=== PATIENT | female | born 1980 | race Caucasian/White ===

== ENCOUNTER 2017-03-27 02:30 | Emergency (ER) | payer MEDICAID, OTHER ==
[~2017-03-27] VITALS: Ht 160 cm; Wt 147.4 kg
[2017-03-27] MEDS ORDERED: IV NORMAL SALINE 1,000ML 1,000 ML IV SCH (02:44)
[2017-03-27] MEDS ORDERED: HYDROmorphone PF 1 MG/ML DISP.SYRIN IV/SQ PRN (02:45)
[2017-03-27] MEDS ORDERED: ACETAMINOPHEN 325 MG TABLET PO ONE (02:45)
[2017-03-27] MEDS ORDERED: ONDANSETRON PF 4 MG/2 ML VIAL. IV ONE (02:45)
[2017-03-27] MEDS ORDERED: 0.9 % SODIUM CHLORIDE 10 ML DISP.SYRIN. IV PRN (02:45)
[2017-03-27] MEDS ORDERED: KETOROLAC 30 MG/ML VIAL. IV ONE (02:45)
--- NOTE | 2017-03-27 02:49 | PHYS DOC ---
Past History Past Medical History: Hypertension, Hypothyroid Past Surgical History: No Surgical History Smoking: Non-smoker Alcohol Use: Occasionally Drug Use: None Adult General Chief Complaint Chief Complaint: cough, nausea, vomiting, diarrhea [facility] Patient is a pleasant 36-year-old female with a history of essential hypertension hypothyroidism presents with nausea, vomiting, diarrhea for last 18 hours along with myalgias a nonproductive cough and low-grade fevers. Patient says she began not feeling well yesterday when she developed a nonproductive cough with progressive symptoms of myalgias in her upper and lower extremities, with diffuse abdominal discomfort nausea vomiting nonbilious nonbloody and older episodes of diarrhea nonbloody nonmucoid. 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 She denies any consumption of raw food, handling of poultry or reptiles. Abdominal pain is not changed with TheraFlu over-the- counter medication she took with her symptoms. She denies any chest pain, shortness of breath, sore throat or change in voice. She denies any runny nose or hearing loss or ear pain along with drainage. Review of Systems Review of Systems Constitutional: Positive for fevers and chills Eyes: Denies change in visual acuity, redness, or eye pain [] HENT: Positive for nasal congestion without sore throat Respiratory: Positive for nonproductive cough without shortness of breath Cardiovascular: No additional information not addressed in HPI [] GI: Positive for diffuse abdominal pain, nausea vomiting diarrhea without constipation or bloody stools : Denies dysuria or hematuria [] Musculoskeletal: Denies back pain or joint pain [] Integument: Denies rash or skin lesions [] Neurologic: Denies headache, focal weakness or sensory changes patient feels generally weak [] Endocrine: Denies polyuria or polydipsia [] All other systems were reviewed and found to be within normal limits, except as documented in this note. Physical Exam Physical Exam Of The vital signs recorded on the chart patient noted to be tachycardic likely secondary to stress and volume depletion. Constitutional: Well developed, well nourished, no acute distress, non-toxic appearance. [] HENT: Normocephalic, atraumatic, bilateral external ears normal, oropharynx slightly dry with mild erythema bu, no oral exudates, nose normal. [] Eyes: PERRLA, EOMI, conjunctiva normal, no discharge. [] Neck: Normal range of motion, no tenderness, supple, no stridor. [] Cardiovascular: Heart rate is regular and tachycardic no murmurs gallops or rubs noted Lungs & Thorax: Bilateral breath sounds clear to auscultation [] Abdomen: Patient has hyperactive bowel sounds but no particular tenderness in any particular quadrant. No masses patient is an obese abdomen but no evidence of hernia, no Gomes's or McBurney's point tenderness to palpation. Skin: Warm, dry, no erythema, no rash. [] Extremities: No tenderness, no cyanosis, no clubbing, ROM intact, no edema. [] Neurologic: Alert and oriented X 3, normal motor function, normal sensory function, no focal deficits noted. [] Psychologic: This patient seems somewhat anxious but judgment is normal] Current Patient Data Lab Results Laboratory Tests Test 03/27/17 03:14 White Blood Count 7.9 x10^3/uL (4.0-11.0) Red Blood Count 4.60 x10^6/uL (3.50-5.40) Hemoglobin 11.3 g/dL (12.0-15.5) L Hematocrit 34.4 % (36.0-47.0) L Mean Corpuscular Volume 75 fL (79-100) L Mean Corpuscular Hemoglobin 25 pg (25-35) Mean Corpuscular Hemoglobin Concent 33 g/dL (31-37) Red Cell Distribution Width 16.3 % (11.5-14.5) H Platelet Count 377 x10^3/uL (140-400) Neutrophils (%) (Auto) 79 % (31-73) H Lymphocytes (%) (Auto) 10 % (24-48) L Monocytes (%) (Auto) 10 % (0-9) H Eosinophils (%) (Auto) 1 % (0-3) Basophils (%) (Auto) 1 % (0-3) Neutrophils # (Auto) 6.2 x10^3uL (1.8-7.7) Lymphocytes # (Auto) 0.8 x10^3/uL (1.0-4.8) L Monocytes # (Auto) 0.8 x10^3/uL (0.0-1.1) Eosinophils # (Auto) 0.0 x10^3/uL (0.0-0.7) Basophils # (Auto) 0.0 x10^3/uL (0.0-0.2) Sodium Level 140 mmol/L (136-145) Potassium Level 3.5 mmol/L (3.5-5.1) Chloride Level 105 mmol/L (98-107) Carbon Dioxide Level 23 mmol/L (21-32) Anion Gap 12 (6-14) Blood Urea Nitrogen 13 mg/dL (7-20) Creatinine 0.8 mg/dL (0.6-1.0) Estimated GFR (Cockcroft-Gault) 82.1 Glucose Level 121 mg/dL (70-99) H Calcium Level 8.6 mg/dL (8.5-10.1) Total Bilirubin 0.1 mg/dL (0.2-1.0) L Direct Bilirubin 0.1 mg/dL (0.0-0.2) Aspartate Amino Transferase (AST) 16 U/L (15-37) Alanine Aminotransferase (ALT) 27 U/L (14-59) Alkaline Phosphatase 126 U/L (46-116) H Troponin I Quantitative < 0.017 ng/mL (0-0.055) Total Protein 7.4 g/dL (6.4-8.2) Albumin 2.8 g/dL (3.4-5.0) L Lipase 66 U/L (73-393) L EKG EKG [] Radiology/Procedures Radiology/Procedures [] Course & Med Decision Making Course & Med Decision Making Pertinent Labs and Imaging studies reviewed. (See chart for details) she presents with nausea vomiting diarrhea and flulike symptoms for last 18 hours. Patient immediately came in she felt that she could not keep food and fluids down upon her arrival her abdomen was soft but because of her nausea vomiting diarrhea and an inability to localize pain in the right lower right upper abdomen patient a CAT scan done with IV contrast. []To presented with [address] [address] IMAGING REPORT Signed PATIENT: CHINYEREJune ACCOUNT: [id number] : 1980 LOCATION: ER AGE: 36 SEX: F EXAM STATUS: REG ER ORD. PHYSICIAN: MALCOLM VELARDE MD REASON: ABDOMINAL PAIN, NAUSEA VOMITING DIARRHEA PROCEDURE: CT ABD PELV W/ IV CONTRST ONLY PQRS Compliance Statement: One or more of the following individualized dose reduction techniques were utilized for this examination: 1. Automated exposure control 2. Adjustment of the mA and/or kV according to patient size 3. Use of iterative reconstruction technique CT ABD PELV W/ IV CONTRST ONLY Clinical Indication: DIFFUSE ABDOMINAL PAIN, FEVER, NAUSEA AND VOMITING Comparison: None. Technique: Helical CT imaging of the abdomen and pelvis is performed after 75 cc Omnipaque 300 IV contrast. Oral contrast not given. Findings: Respiratory motion artifact in the lung bases. Minimal atelectasis or scarring posterior left lower lobe. Cardiac size normal. Liver, gallbladder, spleen, pancreas, adrenal glands, abdominal aorta, and kidneys are normal. Stomach unremarkable. No dilated small bowel. No colon wall thickening. The appendix is normal. No abdominal adenopathy or free fluid. Ovaries symmetric. Uterus unremarkable. Urinary bladder nearly completely decompressed, otherwise normal. No pelvic free fluid. Bones unremarkable. IMPRESSION: No acute abdominal or pelvic abnormality. Electronically signed by: Mathew Valle MD (03/27/2017 4:11 AM) [facility] On secondary examination at 4:20 AM patient is felt markedly improved and her cough is resolved. Her tachycardia is improved from the mid 120s to 100. Patient abdomen soft waiting for flu swab to return. Time is now 5:15 AM patient also has negative she is feeling markedly improved and her tachycardia is now resolved. Impression: Abdominal pain, nausea vomiting diarrhea, tachycardia resolving discharge: I've spoken with the patient and/or caregivers. I've explained the patient's condition, diagnosis and treatment plan based on information available to me at this time. I've answered the patient's and/or caregivers questions and addressed any concerns. The patient and/or caregivers have a good understanding the patient's diagnosis, condition and treatment plan as can be expected at this point. Vital signs have been stabilized. The patient's condition is stable for discharge from the emergency department. The patient will pursue further outpatient evaluation with her primary care provider or other designated consulting physician as outlined in the discharge instructions. Patient and/or caregivers are agreeable to this plan of care and follow-up instructions have been explained in detail. The patient and/or caregivers have received these instructions in written format and expressed understanding of these discharge instructions. The patient and her caregivers are aware that if any significant change in condition or worsening of symptoms should prompt him to immediately return to this of the closest emergency department. If an emergent department is not readily available I would encourage him to call 911. Dragon Disclaimer Dragon Disclaimer This electronic medical record was generated, in whole or in part, using a voice recognition dictation system. Departure Departure: Impression: Primary Impression: Nausea and vomiting Additional Impression: Diarrhea Disposition: HOME, SELF-CARE Condition: IMPROVED Referrals: NAME,DAWNA RAMIREZ (PCP) Patient Instructions: Abdominal Pain (Nonspecific), Cough, Adult, Diarrhea, Nausea and Vomiting Additional Instructions: discharge: I've spoken with the patient and/or caregivers. I've explained the patient's condition, diagnosis and treatment plan based on information available to me at this time. I've answered the patient's and/or caregivers questions and addressed any concerns. The patient and/or caregivers have a good understanding the patient's diagnosis, condition and treatment plan as can be expected at this point. Vital signs have been stabilized. The patient's condition is stable for discharge from the emergency department. The patient will pursue further outpatient evaluation with her primary care provider or other designated consulting physician as outlined in the discharge instructions. Patient and/or caregivers are agreeable to this plan of care and follow-up instructions have been explained in detail. The patient and/or caregivers have received these instructions in written format and expressed understanding of these discharge instructions. The patient and her caregivers are aware that if any significant change in condition or worsening of symptoms should prompt him to immediately return to this of the closest emergency department. If an emergent department is not readily available I would encourage him to call 911. Scripts Ondansetron (ZOFRAN ODT) 4 Mg Tab.rapdis 1 TAB SL Q8HRS, #15 TAB Prov: MALCOLM VELARDE MD 03/27/17 Naproxen Sodium (NAPROXEN SODIUM) 275 Mg Tablet 275 MG PO BID for 7 Days, #14 TAB Prov: MALCOLM VELARDE MD 03/27/17 Diphenoxylate Hcl/Atropine (LOMOTIL TABLET) 1 Each Tablet 1 TAB PO QID, #20 TAB Prov: MALCOLM VELARDE MD 03/27/17 Dicyclomine Hcl (BENTYL) 10 Mg Capsule 1 CAP PO TID, #15 CAP.EC Prov: MALCOLM VELARDE MD 03/27/17 Problem Qualifiers MALCOLM VELARDE MD Mar 27, 2017 02:49
[2017-03-27] MEDS ORDERED: HYDROmorphone PF 2 MG/ML VIAL ONE (03:29)
[2017-03-27] MEDS ORDERED: IOHEXOL 300 MG/ML 75 ML VIAL. IV ONE (03:30)
[2017-03-27] MEDS ORDERED: CONTRAST GIVEN MC PRN (03:30)
[2017-03-27 03:51] LABS: BASO % 1 % (0-3); EOS % 1 % (0-3); HEMATOCRIT 34.4 % (36.0-47.0); HEMOGLOBIN 11.3 g/dL (12.0-15.5); LYMPH # 0.8 x10^3/uL (1.0-4.8); LYMPH % 10 % (24-48); MEAN CORPUSCULAR HEMOGLOBIN 25 pg (25-35); MEAN CORPUSCULAR HGB CONC 33 g/dL (31-37); MEAN CORPUSCULAR VOLUME 75 fL (79-100); MONO # 0.8 x10^3/uL (0.0-1.1); MONO % 10 % (0-9); NEUT # 6.2 x10^3uL (1.8-7.7); NEUT % 79 % (31-73); PLATELET COUNT 377 x10^3/uL (140-400); RED CELL DISTRIBUTION WIDTH 16.3 % (11.5-14.5); WHITE BLOOD COUNT 7.9 x10^3/uL (4.0-11.0)
[2017-03-27 04:00] LABS: ALBUMIN 2.8 g/dL (3.4-5.0); CALCIUM 8.6 mg/dL (8.5-10.1); CREATININE 0.8 mg/dL (0.6-1.0); DIRECT BILIRUBIN 0.1 mg/dL (0.0-0.2); GFR 82.1; POTASSIUM 3.5 mmol/L (3.5-5.1); TOTAL BILIRUBIN 0.1 mg/dL (0.2-1.0); TOTAL PROTEIN 7.4 g/dL (6.4-8.2)
--- NOTE | 2017-03-27 04:15 | RAD ---
PQRS Compliance Statement: One or more of the following individualized dose reduction techniques were utilized for this examination: 1. Automated exposure control 2. Adjustment of the mA and/or kV according to patient size 3. Use of iterative reconstruction technique CT ABD PELV W/ IV CONTRST ONLY Clinical Indication: DIFFUSE ABDOMINAL PAIN, FEVER, NAUSEA AND VOMITING Comparison: None. Technique: Helical CT imaging of the abdomen and pelvis is performed after 75 cc Omnipaque 300 IV contrast. Oral contrast not given. Findings: Respiratory motion artifact in the lung bases. Minimal atelectasis or scarring posterior left lower lobe. Cardiac size normal. Liver, gallbladder, spleen, pancreas, adrenal glands, abdominal aorta, and kidneys are normal. Stomach unremarkable. No dilated small bowel. No colon wall thickening. The appendix is normal. No abdominal adenopathy or free fluid. Ovaries symmetric. Uterus unremarkable. Urinary bladder nearly completely decompressed, otherwise normal. No pelvic free fluid. Bones unremarkable. IMPRESSION: No acute abdominal or pelvic abnormality. Electronically signed by: Mathew Valle MD (03/27/2017 4:11 AM) [facility]
[2017-03-27 04:24] LABS: BACTERIA,URINE FEW /HPF (0-FEW); BILIRUBIN,URINE NEG (NEG); CLARITY,URINE CLEAR; COLOR,URINE YELLOW; GLUCOSE,URINE NEG (NEG); NITRITE,URINE NEG (NEG); SQUAMOUS EPITHELIAL CELL,UR MOD /LPF; UROBILINOGEN,URINE 0.2 mg/dL (0.2 mg/dL)
[2017-03-27 05:01] LABS: INFLUENZA A PATIENT NEGATIVE (NEGATIVE); INFLUENZA B PATIENT NEGATIVE (NEGATIVE)
[2017-03-27] MEDS ORDERED: HYDROmorphone PF 2 MG/ML VIAL IV/SQ PRN (05:07)
[2017-03-27] MEDS ORDERED: NAPR275T59 PO (05:17)
[2017-03-27] MEDS ORDERED: DIPH1TAB PO (05:17)
[2017-03-27] MEDS ORDERED: ONDA4TAB10 SL (05:17)
[2017-03-27] MEDS ORDERED: DICY10CA53 PO (05:17)
[2017-03-27 05:36] VITALS: BP 131/83
== END 2017-03-27 06:00 | disposition home or self-care (01) ==
LOC: ER 02:30
DX: R11.2 Nausea with vomiting, unspecified (principal); R19.7 Diarrhea, unspecified; R50.9 Fever, unspecified; E03.9 Hypothyroidism, unspecified; I10 Essential (primary) hypertension
CPT/HCPCS: 36415; 74177; 80048; 80076; 81001; 83690; 84484; 85025; 87086; 87804; 96361; 96374; 96375; 99285; J1170; J1885; J2405; Q9967; J7030

== ENCOUNTER 2017-12-10 17:22 | Emergency (ER) | payer OTHER ==
[~2017-12-10] VITALS: Ht 160 cm; Wt 147.4 kg
[2017-12-10 17:22] VITALS: BP 144/81
[~2017-12-10 17:22] MED LIST: DICY10CA53 PO; DIPH1TAB PO; NAPR275T59 PO; ONDA4TAB10 SL
--- NOTE | 2017-12-10 17:53 | ED.ADGEN ---
Past History Past Medical History: Hypertension, Hypothyroid Past Surgical History: No Surgical History Smoking: Non-smoker Alcohol Use: Occasionally Drug Use: None Adult General Chief Complaint Chief Complaint ".. I hurt my Rt knee in the middle of week....getting my kid out of the car... and it been hurting all weeks. .. I usually see Nano at [facility] office but could not wait to get in.... my knee hurts too bad...." HPI HPI Patient is a 37 year old female who presents with above hx and complaints of right knee pain. Patient locates the pain above the patella. Patient has some swelling. Patient states it felt like it ovary extended. Patient can do straight leg lift. There is no collateral tenderness. Relatively stable anterior draw. Posterior stressors seem to increase pain in the knee. Pt. is ambulatory. No previous history of knee injury. Distal neurovascular intact. No history of immunosuppression. No history of fever or chills. No history of travel. Review of Systems Review of Systems Constitutional: Denies fever or chills [] Eyes: Denies change in visual acuity, redness, or eye pain [] HENT: Denies nasal congestion or sore throat [] Respiratory: Denies cough or shortness of breath [] Cardiovascular: No additional information not addressed in HPI [] GI: Denies abdominal pain, nausea, vomiting, bloody stools or diarrhea [] : Denies dysuria or hematuria [] Musculoskeletal: Complains of right knee pain Integument: Denies rash or skin lesions [] Neurologic: Denies headache, focal weakness or sensory changes [] Endocrine: Denies polyuria or polydipsia [] All other systems were reviewed and found to be within normal limits, except as documented in this note. Family History Family History Noncontributory Current Medications Current Medications See nursing for home meds Allergies Allergies Allergies Coded Allergies Type Severity Reaction Last Updated Verified No Known Drug Allergies 03/27/17 No Physical Exam Physical Exam Constitutional: Moderately acute distress, non-toxic appearance. [] HENT: Normocephalic, atraumatic, bilateral external ears normal, oropharynx moist, no oral exudates, nose normal. [] Eyes: PERRLA, EOMI, conjunctiva normal, no discharge. [] Neck: Normal range of motion, no tenderness, supple, no stridor. [] Cardiovascular:Heart rate regular rhythm, no murmur [] Lungs & Thorax: Bilateral breath sounds clear to auscultation [] Abdomen: Bowel sounds normal, soft, no tenderness, no masses, no pulsatile masses. Obese. Skin: Warm, dry, no erythema, no rash. [] Back: No tenderness, no CVA tenderness. [] Extremities: Right knee tenderness, no cyanosis, no clubbing, ROM intact, right knee edema. [] Is some pain with range of motion of right knee as per history of present illness Neurologic: Alert and oriented X 3, normal motor function, normal sensory function, no focal deficits noted. [] Psychologic: Affect normal, judgement normal, mood normal. [] Current Patient Data Vital Signs Vital Signs Date Time Temp Pulse Resp B/P (MAP) Pulse Ox O2 Delivery O2 Flow Rate FiO2 12/10/17 17:22 98.4 93 20 98 Room Air Lab Results Laboratory Tests Test 12/10/17 18:20 12/10/17 18:27 Urine Collection Type Unknown Urine Color Yellow Urine Clarity Cloudy Urine pH 6.5 Urine Specific [place] 1.025 Urine Protein Neg (NEG-TRACE) Urine Glucose (UA) Neg mg/dL (NEG) Urine Ketones (Stick) Neg mg/dL (NEG) Urine Blood Mod (NEG) Urine Nitrite Neg (NEG) Urine Bilirubin Neg (NEG) Urine Urobilinogen Dipstick 0.2 mg/dL (0.2 mg/dL) Urine Leukocyte Esterase Trace (NEG) Urine RBC Rare /HPF (0-2) Urine WBC 5-10 /HPF (0-4) Urine Squamous Epithelial Cells Many /LPF Urine Bacteria Few /HPF (0-FEW) Urine Mucus Slight /LPF Urine Opiates Screen Neg (NEG) Urine Methadone Screen Neg (NEG) Urine Barbiturates Neg (NEG) Urine Phencyclidine Screen Neg (NEG) Urine Amphetamine/Methamphetamine Neg (NEG) Urine Benzodiazepines Screen Neg (NEG) Urine Cocaine Screen Neg (NEG) Urine Cannabinoids Screen Neg (NEG) Urine Ethyl Alcohol Neg (NEG) POC Urine HCG, Qualitative hcg negative (Negative) EKG EKG [] Radiology/Procedures Radiology/Procedures My interpretation of right knee films shows no obvious fracture or dislocation. See formal report when available[] Course & Med Decision Making Course & Med Decision Making Pertinent Labs and Imaging studies reviewed. (See chart for details). Ice, elevation, rest,. Ayden wrap. Follow-up primary care. Tylenol and ibuprofen for pain. Return if any concerns. [] Final Impression Final Impression 1. Rt Knee[]- sprain and strain Dragdipti Disclaimer Dragon Disclaimer This electronic medical record was generated, in whole or in part, using a voice recognition dictation system. PREMA HIRSCH MD Dec 10, 2017 17:53
[2017-12-10] MEDS ORDERED: HYDR-79 PO (18:12)
--- NOTE | 2017-12-10 18:43 | RAD ---
4 view right knee 12/10/2017 CLINICAL INDICATION: Right knee pain and injury. COMPARISON: None. FINDINGS: No acute fracture or traumatic malalignment. Joint spaces maintained. There is minimal osteophytic spurring of the medial and lateral joint compartments. No significant knee joint effusion. IMPRESSION: No acute osseous abnormality. Electronically signed by: Juan Jaimes MD (12/10/2017 6:40 PM) [facility]
[2017-12-10 18:47] LABS: BACTERIA,URINE FEW /HPF (0-FEW); BILIRUBIN,URINE NEG (NEG); CLARITY,URINE CLOUDY; COLOR,URINE YELLOW; GLUCOSE,URINE NEG (NEG); NITRITE,URINE NEG (NEG); RBC,URINE RARE /HPF (0-2); SQUAMOUS EPITHELIAL CELL,UR MANY /LPF; UROBILINOGEN,URINE 0.2 mg/dL (0.2 mg/dL)
[2017-12-10 18:54] LABS: BARBITURATES NEG (NEG); BENZODIAZEPINES NEG (NEG); CANNABINOIDS NEG (NEG); COCAINE NEG (NEG); METHADONE NEG (NEG); OPIATES NEG (NEG); PHENCYCLIDINE NEG (NEG)
[2017-12-10 18:55] LABS: AMPHETAMINE/METHAMPHETAMINE NEG (NEG)
== END 2017-12-10 19:00 | disposition home or self-care (01) ==
LOC: ER 17:22
DX: S83.91XA Sprain of unspecified site of right knee, initial encounter (principal); I10 Essential (primary) hypertension; E03.9 Hypothyroidism, unspecified; X58.XXXA Exposure to other specified factors, initial encounter; Y93.89 Activity, other specified; Y92.89 Other specified places as the place of occurrence of the external cause; Y99.8 Other external cause status
CPT/HCPCS: 36415; 73564; 80307; 81001; 81025; 87086; 99285-25; G0479

== ENCOUNTER 2021-02-10 20:12 | Emergency (ER) | payer MEDICAID, OTHER ==
[~2021-02-10] VITALS: Ht 160 cm; Wt 105.0 kg
[~2021-02-10 20:12] MED LIST changes: +HYDR-1179 PO
--- NOTE | 2021-02-10 20:36 | PHYS DOC ---
Past History Past Medical History: Hypertension, Hypothyroid, Migraines (GE PONCE APRN) Past Surgical History: No Surgical History (GE PONCE APRN) Smoking: Non-smoker Alcohol Use: Occasionally Drug Use: None (GE PONCE APRN) General Adult EDM: Chief Complaint: HEADACHE HPI: HPI: Patient is a 40-year-old female that presents today with headache. Patient states she has a history of migraine headaches, she states her headache started 5 days ago mostly on the right side, and in the back occipital area. Patient states she has tried her normal treatment for her headaches at home, patient states she saw her primary care physician on Monday had a medication change at that time, and states that has not helped her headaches. Patient denies blurred vision double vision, has no neurological deficits that she has concerns for. (GE PONCE APRN) Review of Systems: Review of Systems: Constitutional: Denies fever or chills Eyes: Denies change in visual acuity HENT: Denies nasal congestion or sore throat Respiratory: Denies cough or shortness of breath Cardiovascular: Denies chest pain or edema GI: Denies abdominal pain, nausea, vomiting, bloody stools or diarrhea : Denies dysuria Musculoskeletal: Denies back pain or joint pain Integument: Denies rash Neurologic: Headache Endocrine: Denies polyuria or polydipsia Lymphatic: Denies swollen glands Psychiatric: Denies depression or anxiety (GE PONCE APRN) Current Medications: Current Meds: Ubrelvy took today with no relief of headache (GE PONCE APRN) Allergies: Allergies: Allergies Coded Allergies Type Severity Reaction Last Updated Verified No Known Drug Allergies 03/27/17 No (GE PONCE APRN) Physical Exam: PE: Constitutional: Well developed, well nourished, no acute distress, non-toxic appearance. [] HENT: Normocephalic, atraumatic, bilateral external ears normal, oropharynx moist, no oral exudates, nose normal. [] Eyes: PERRLA, EOMI, conjunctiva normal, no discharge. [] Neck: Normal range of motion, no tenderness, supple, no stridor. [] Cardiovascular:Heart rate regular rhythm, no murmur [] Lungs & Thorax: Bilateral breath sounds clear to auscultation [] Abdomen: Bowel sounds normal, soft, no tenderness, no masses, no pulsatile masses. [] Skin: Warm, dry, no erythema, no rash. [] Back: No tenderness, no CVA tenderness. [] Extremities: No tenderness, no cyanosis, no clubbing, ROM intact, no edema. [] Neurologic: Alert and oriented X 3, normal motor function, normal sensory function, no focal deficits noted. [] Psychologic: Affect normal, judgement normal, mood normal. [] (GE PONCE APRN) Current Patient Data: Vital Signs: Vital Signs Date Time Temp Pulse Resp B/P (MAP) Pulse Ox O2 Delivery O2 Flow Rate FiO2 02/10/21 21:00 97.5 98 16 157/100 (119) 99 Room Air (GE PONCE APRN) EKG: EKG: [] (GE PONCE APRN) Radiology/Procedures: Radiology/Procedures: [] (GE PONCE APRN) Heart Score: C/O Chest Pain: N/A Risk Factors: Risk Factors: DM, Current or recent (<one month) smoker, HTN, HLP, family hist ory of CAD, obesity. Risk Scores: Score 0 - 3: 2.5% MACE over next 6 weeks - Discharge Home Score 4 - 6: 20.3% MACE over next 6 weeks - Admit for Clinical Observation Score 7 - 10: 72.7% MACE over next 6 weeks - Early Invasive Strategies (GE PONCE APRN) Course & Med Decision Making: Course & Med Decision Making Pertinent Labs and Imaging studies reviewed. (See chart for details) 212 reassessment of patient shows that headache is gone per patient report, will allow the remaining IV fluids to infuse and then discharge patient to home. Patient is to follow-up with her primary care in the a.m. to report her admission here, patient is agreeable to the plan of care and verbalizes understanding (GE PONCE APRN) Dragon Disclaimer: Dragon Disclaimer: This electronic medical record was generated, in whole or in part, using a voice recognition dictation system. (GE PONCE APRN) Departure Departure: Impression: Primary Impression: Migraine Qualified Codes: G43.909 - Migraine, unspecified, not intractable, without status migrainosus Disposition: HOME / SELF CARE / HOMELESS Condition: RELEASED IN CUST[place] Referrals: RUTH CEDENO APRN (PCP) Patient Instructions: Recurrent Migraine Headache Additional Instructions: Follow-up with your primary care physician in the a.m. for further management of your migraine headaches Continue all home current medications Attending Signature Attending Signature I have reviewed the PA/DIESEL TRUCK MECHANIC's note and plan of care. I was available for consultation as needed during the patient's visit in the emergency department. I agree with the clinical impression, plan, and disposition. (ALLEN WOODARD DO) GE PONCE APRN Feb 10, 2021 20:36 ALLEN WOODARD DO Feb 11, 2021 01:29
[2021-02-10] MEDS ORDERED: PROCHLORPERAZINE 10 MG/2 ML VIAL. IV ONE (20:45)
[2021-02-10] MEDS ORDERED: KETOROLAC 30 MG/ML VIAL. IVP ONE (20:45)
[2021-02-10] MEDS ORDERED: diphenhydrAMINE 50 MG/ML VIAL IVP ONE (20:45)
[2021-02-10] MEDS ORDERED: IV NORMAL SALINE 1,000ML 1,000 ML IV ONE (20:45)
[2021-02-10 21:00] VITALS: BP 157/100
== END 2021-02-10 21:54 | disposition home or self-care (01) ==
LOC: ER 20:12
DX: G43.909 Migraine, unspecified, not intractable, without status migrainosus (principal); I10 Essential (primary) hypertension; E03.9 Hypothyroidism, unspecified
CPT/HCPCS: 81025; 96361; 96374; 96375; 99284; J0780; J1200; J1885; J7030